=== PATIENT | male | born 1980 | race Two or more races ===

== ENCOUNTER 2025-02-26 02:15 | Inpatient (IN) | payer MEDICAID, OTHER ==
[~2025-02-26] VITALS: Ht 175.3 cm; Wt 79.0 kg
--- NOTE | 2025-02-26 03:01 | ED.PDOC ---
History of Present Illness HPI Comments 44-year-old male who came to ER via EMS for altered level of consciousness. Patient was seen by horacio MCWILLIAMS. Patient was being questioned and was acting and answering appropriately, When SO screened his name, nothing came out so they decided to do a fingerprint test on him. As they returned they saw the patient sitting upright against car bumper slumped over unresponsive and non verbal. Normal vital signs and blood sugar of 191. Unresponsive even with deep sternal rub, both pupils reactive to light. Patient brought in for evaluation and management REVIEW OF SYSTEMS: Altered mental status EXAM: General: Patient is sleeping, not arousing to pain. Skin: Skin in warm, dry and intact. Appropriate color for ethnicity. HEENT: The head is normocephalic and atraumatic. Conjunctivae are clear without exudates or hemorrhage. Sclera is non-icteric. No signs of nystagmus. Eyelids are normal in appearance without swelling or lesions. Oral mucosa is pink and moist. Some spontaneous eye movement noted. Neck: The neck is supple with normal range of motion. No JVD. Cardiac: Heart rate and rhythm are normal. No murmurs, gallops, or rubs are aus cultated. Respiratory: No signs of respiratory distress. Lung sounds are clear in all lobes bilaterally without rales, rhonchi, or wheezes. Abdominal: Abdomen is soft, non-tender without distention. Bowel sounds are present and normoactive in all four quadrants. Extremities: Upper and lower extremities are atraumatic in appearance without deformity or edema. Neurological: The patient is sleeping, minimal spontaneous movement. He does not respond to commands or pain. No vocalizations. 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 Was a procedure done?: No Differential Dx Considerations may include: Altered mental status, homeless, substance abuse, malingering X-Ray, Labs, Meds, VS Vital Signs Date Time Temp Pulse Resp B/P (MAP) Pulse Ox O2 Delivery O2 Flow Rate FiO2 02/26/25 02:18 98.5 92 18 149/87 97 98.5 Lab Test 02/26/25 03:02 Range/Units White Blood Count 5.8 4.4-10.8 10^3/uL Red Blood Count 4.50 4.5-5.90 10^6/uL Hemoglobin 12.1 L 13.5-17.5 g/dL Hematocrit 36.6 L 41.0-53.0 % Mean Corpuscular Volume 81.3 80.0-100.0 fL Mean Corpuscular Hemoglobin 27.0 L 28.0-32.0 pg Mean Corpuscular Hemoglobin Concent 33.2 32.0-36.0 g/dL Red Cell Distribution Width 14.3 11.8-14.3 % Platelet Count 209 140-450 10^3/uL Mean Platelet Volume 8.8 6.9-10.8 fL Neutrophils (%) (Auto) 50.5 37.0-80.0 % Lymphocytes (%) (Auto) 38.3 10.0-50.0 % Monocytes (%) (Auto) 8.2 0.0-12.0 % Eosinophils (%) (Auto) 2.2 0.0-7.0 % Basophils (%) (Auto) 0.8 0.0-2.0 % Neutrophils # (Auto) 2.9 1.6-8.6 10 ^3/uL Lymphocytes # (Auto) 2.2 0.4-5.4 10 ^3/uL Monocytes # (Auto) 0.5 0-1.3 10 ^3/uL Eosinophils # (Auto) 0.1 0-0.8 10 ^3/uL Basophils # (Auto) 0 0-0.2 10 ^3/uL Nucleated Red Blood Cells 0.0 % Sodium Level 142 136-145 mmol/L Potassium Level 3.8 3.5-5.1 mmol/L Chloride Level 104 98-107 mmol/L Carbon Dioxide Level 29 20-31 mmol/L Anion Gap 9 5-15 Blood Urea Nitrogen 10 9-23 mg/dL Creatinine 0.66 L 0.700-1.30 mg/dL Glomerular Filtration Rate Calc 120 >90 mL/min BUN/Creatinine Ratio 15.2 10.0-20.0 Serum Glucose 89 74-106 mg/dL Calcium Level 9.1 8.7-10.4 mg/dL Magnesium Level 1.9 1.6-2.6 mg/dL Total Bilirubin 0.2 0.2-1.0 mg/dL Aspartate Amino Transferase (AST) 20 13-40 U/L Alanine Aminotransferase (ALT) 22 7-40 U/L Alkaline Phosphatase 105 46-116 U/L Ammonia 44 H 11-32 umol/L Total Protein 6.7 5.7-8.2 g/dL Albumin 3.8 3.2-4.8 g/dL Lipase 24 12-53 U/L Plasma/Serum Blood Alcohol < 3.0 <10 mg/dL Time of 1ST Reevaluation: 02:55 Reevaluation 1ST: Unchanged Patient Education/Counseling: Need For Follow Up Family Education/Counseling: No Family Present SEPSIS Sepsis Screen Date sepsis recognized/suspect: Feb 26, 2025 Time Sepsis recognized/suspect: 217 Respiratory Rate >20: No Heart Rate >90: Yes Temp<36 C (96.8 F) or >38.3 C: No SBP <90 or MAP <65 mmHG: No New Acute Mental Status Change: Yes Is the patient on CPAP, BIPAP,: No Physician Orders Drug Screen (02/26/25 02:53) Urinalysis (02/26/25 02:53) Saline Lock (02/26/25 02:53) Straight Cath. (02/26/25 ) Head Without Contrast (02/26/25 02:55) Vital Signs Date Time Temp Pulse Resp B/P (MAP) Pulse Ox O2 Delivery O2 Flow Rate FiO2 02/26/25 02:18 98.5 92 18 149/87 97 98.5 Laboratory Tests Test 02/26/25 03:02 White Blood Count 5.8 10^3/uL (4.4-10.8) Departure 1 Departure Time of Disposition: 05:22 Impression: Primary Impression: Altered mental status Disposition: ADMITTED INPATIENT Condition: Guarded Comments 44-year-old male with altered mental status. No respiratory compromise. Patient admitted to hospitalist service for further treatment, evaluation and monitoring. Critical Care Note Critical Care Time?: No Stability Stability form required: No Heart Score Heart Score: Heart Score Response (Comments) Value History N/A 0 EKG N/A 0 Age N/A 0 Risk Factors N/A 0 Troponin N/A 0 Total 0 I personally scribed for NISHA RAMON MD ([email or web address]) on 02/26/25 at 03:01. Electronically submitted by Eliseo Guzman ([facility]). NISHA RAMON MD Feb 26, 2025 03:01
--- NOTE | 2025-02-26 03:35 | DVH ---
MEDICAL RECORDS NUMBER: [id number] PROCEDURE: CT HEAD WITHOUT CONTRAST Date: 02/26/2025 03:11 AM HISTORY: Altered mental status TECHNIQUE: Contiguous 5 mm axial images were acquired from the skull base through to the vertex. CONTRAST: None COMPARISON: None RADIATION DOSE INFORMATION: Automated exposure control dose reduction techniques were used. FINDINGS: Ventricles: Atrophy of the brain is seen to a mild degree.The ventricles appear grossly unremarkable. Masses: No mass effect is seen. Hemorrhage: No blood products are identified. Skull: The calvarium is intact. Sinuses: The paranasal sinuses are clear. Mastoids: No fluid is seen in the mastoid air cells. IMPRESSION: 1. No acute process is identified.
[2025-02-26 03:37] LABS: Hematocrit 36.6 % (41.0-53.0); Hemoglobin 12.1 g/dL (13.5-17.5); Mean Corpuscular Hemoglobin 27.0 pg (28.0-32.0); Mean Corpuscular Volume 81.3 fL (80.0-100.0); Nucleated Red Blood Cells % 0.0 %
[2025-02-26 03:43] LABS: Alanine Aminotransferase 22 U/L (7-40); Albumin 3.8 g/dL (3.2-4.8); Alkaline Phosphatase 105 U/L (46-116); Anion Gap 9 (5-15); BUN/Creatinine Ratio 15.2 (10.0-20.0); Blood Urea Nitrogen 10 mg/dL (9-23); Calcium 9.1 mg/dL (8.7-10.4); Carbon Dioxide 29 mmol/L (20-31); Chloride 104 mmol/L (98-107); Glucose 89 mg/dL (74-106); Lipase 24 U/L (12-53); Magnesium 1.9 mg/dL (1.6-2.6); Potassium 3.8 mmol/L (3.5-5.1); Sodium 142 mmol/L (136-145); Total Protein 6.7 g/dL (5.7-8.2)
[2025-02-26 03:52] LABS: Bilirubin, Total 0.2 mg/dL (0.2-1.0)
--- NOTE | 2025-02-26 07:01 | DVHHP2 ---
History of Present Illness Reason for Visit: ALOC History of Present Illness Dionisio Dumont is a 44-year-old male unknown past medical history who presents to the ED with altered level of consciousness. 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 Upon evaluation sternal rub and tactile stimuli initiated with no response. Shortly after when I mentioned that we would put a rectal tube and give the patient Narcan he started to come to with his eyes opening up but not reply to my questions. Officer at bedside Juan Vizcaino reports that he found him behind the [employer] on [place] [facility] in [place]. Patient appears in no distress at this time Review of Systems Neurological: Other (aloc) Allergies: Uncoded Allergies: UNKNOWN (Allergy, Unknown, 02/26/25) Exam Vital Signs Vital Signs Date Time Temp Pulse Resp B/P (MAP) Pulse Ox O2 Delivery O2 Flow Rate FiO2 02/26/25 02:18 98.5 92 18 149/87 97 98.5 Respiratory: Normal air movement Cardiovascular: Regular rate, Normal S1, Normal S2 Abdominal: Normal bowel sounds Labs/Xrays Labs Test 02/26/25 03:02 Range/Units White Blood Count 5.8 4.4-10.8 10^3/uL Red Blood Count 4.50 4.5-5.90 10^6/uL Hemoglobin 12.1 L 13.5-17.5 g/dL Hematocrit 36.6 L 41.0-53.0 % Mean Corpuscular Volume 81.3 80.0-100.0 fL Mean Corpuscular Hemoglobin 27.0 L 28.0-32.0 pg Mean Corpuscular Hemoglobin Concent 33.2 32.0-36.0 g/dL Red Cell Distribution Width 14.3 11.8-14.3 % Platelet Count 209 140-450 10^3/uL Mean Platelet Volume 8.8 6.9-10.8 fL Neutrophils (%) (Auto) 50.5 37.0-80.0 % Lymphocytes (%) (Auto) 38.3 10.0-50.0 % Monocytes (%) (Auto) 8.2 0.0-12.0 % Eosinophils (%) (Auto) 2.2 0.0-7.0 % Basophils (%) (Auto) 0.8 0.0-2.0 % Neutrophils # (Auto) 2.9 1.6-8.6 10 ^3/uL Lymphocytes # (Auto) 2.2 0.4-5.4 10 ^3/uL Monocytes # (Auto) 0.5 0-1.3 10 ^3/uL Eosinophils # (Auto) 0.1 0-0.8 10 ^3/uL Basophils # (Auto) 0 0-0.2 10 ^3/uL Nucleated Red Blood Cells 0.0 % Sodium Level 142 136-145 mmol/L Potassium Level 3.8 3.5-5.1 mmol/L Chloride Level 104 98-107 mmol/L Carbon Dioxide Level 29 20-31 mmol/L Anion Gap 9 5-15 Blood Urea Nitrogen 10 9-23 mg/dL Creatinine 0.66 L 0.700-1.30 mg/dL Glomerular Filtration Rate Calc 120 >90 mL/min BUN/Creatinine Ratio 15.2 10.0-20.0 Serum Glucose 89 74-106 mg/dL Calcium Level 9.1 8.7-10.4 mg/dL Magnesium Level 1.9 1.6-2.6 mg/dL Total Bilirubin 0.2 0.2-1.0 mg/dL Aspartate Amino Transferase (AST) 20 13-40 U/L Alanine Aminotransferase (ALT) 22 7-40 U/L Alkaline Phosphatase 105 46-116 U/L Ammonia 44 H 11-32 umol/L Total Protein 6.7 5.7-8.2 g/dL Albumin 3.8 3.2-4.8 g/dL Lipase 24 12-53 U/L Plasma/Serum Blood Alcohol < 3.0 <10 mg/dL CHEST RADIOGRAPH Indication: aloc Technique: Single frontal view of the chest was obtained Comparison: None FINDINGS: Lines and Tubes: None Lungs: No focal consolidation. Pleura: No effusion. No pneumothorax. Cardiomediastinal contours: Unremarkable Bones: No acute osseous abnormality. IMPRESSION: No acute cardiopulmonary disease. MEDICAL RECORDS NUMBER: [id number] PROCEDURE: CT HEAD WITHOUT CONTRAST Date: 02/26/2025 03:11 AM HISTORY: Altered mental status TECHNIQUE: Contiguous 5 mm axial images were acquired from the skull base through to the vertex. CONTRAST: None COMPARISON: None RADIATION DOSE INFORMATION: Automated exposure control dose reduction techniques were used. FINDINGS: Ventricles: Atrophy of the brain is seen to a mild degree.The ventricles appear grossly unremarkable. Masses: No mass effect is seen. Hemorrhage: No blood products are identified. Skull: The calvarium is intact. Sinuses: The paranasal sinuses are clear. Mastoids: No fluid is seen in the mastoid air cells. IMPRESSION: 1. No acute process is identified. SEPSIS Sepsis Screen Date sepsis recognized/suspect: Feb 26, 2025 Time Sepsis recognized/suspect: 0218 Respiratory Rate >20: No Heart Rate >90: Yes Temp<36 C (96.8 F) or >38.3 C: No SBP <90 or MAP <65 mmHG: No New Acute Mental Status Change: Yes Is the patient on CPAP, BIPAP,: No Physician Orders Drug Screen (02/26/25 02:53) Urinalysis (02/26/25 02:53) Saline Lock (02/26/25 02:53) Straight Cath. (02/26/25 ) Head Without Contrast (02/26/25 02:55) Vital Signs Date Time Temp Pulse Resp B/P (MAP) Pulse Ox O2 Delivery O2 Flow Rate FiO2 02/26/25 02:18 98.5 92 18 149/87 97 98.5 Laboratory Tests Test 02/26/25 03:02 White Blood Count 5.8 10^3/uL (4.4-10.8) Assessment/Plan Assessment/Plan Assessment Acute encephalopathy Positive amphetamines and fentanyl Hyperammonemia Plan Admit to med surge Antiemetics Ammonia levels Straight cath UA Mag level Lipase UDS Blood alcohol level Lactulose Chest x-ray Narcan ABG Diet Will need list of home medications DVT prophylaxis-SCDs PUD prophylaxis-not indicated no history of GERD or GI bleed Discussed plan of care with nurse Patient is in police custody Counseled patient on cessation of polysubstance use [id number] Behavior change smoking greater than 10 minutes about use of other options also gave option of nicotine patch 19226 Preventive counseling healthy eating habits, physical activity, and regular checkups Plan discussed with: Patient Date of Service: Feb 26, 2025 Billing Provider: TOMMY RANDOLPH Common Visit Codes: 10022-[id number] INP/OBS CARE (HIGH) Secondary Visit Codes: 80183-[id number] COUNSELING IND, 19869-UEVRA CHNG SMOKING >10MIN TOMMY RANDOLPH Feb 26, 2025 07:01
[2025-02-26] MEDS ORDERED: LACTULOSE 10g/15ml SOLN 473ML PR ONE (07:15)
[2025-02-26] MEDS ORDERED: ACETAMINOPHEN 325 MG TAB PO PRN (07:15)
[2025-02-26 07:45] VITALS: PULSE 80; RESP 12; O2SAT 97
--- NOTE | 2025-02-26 08:53 | DVH ---
CHEST RADIOGRAPH Indication: aloc Technique: Single frontal view of the chest was obtained Comparison: None FINDINGS: Lines and Tubes: None Lungs: No focal consolidation. Pleura: No effusion. No pneumothorax. Cardiomediastinal contours: Unremarkable Bones: No acute osseous abnormality. IMPRESSION: No acute cardiopulmonary disease.
[2025-02-26] MEDS: NALOXONE HCL 1MG/ML 2ML SYRINGE IV ONE (09:00)
[2025-02-26 09:28] LABS: Base Excess -0.8 mmol/L (-2.0-3.0)
[2025-02-26 10:20] LABS: Urine Amorphous Crystal FEW /hpf (None Seen); Urine Protein, UAD 1+ (Negative); Urine WBC Clumps PRESENT /hpf (None Seen)
[2025-02-26 10:22] LABS: Amphetamine Screen, Urine Pos (NEGATIVE); Barbiturate Scree,Urine Neg (NEGATIVE); Benzodiazephine Screen, Urine Neg (NEGATIVE); Cannabinoid Screen, Urine Neg (NEGATIVE); Cocaine Screen, Urine Neg (NEGATIVE); Opiate Scree,Urine Neg (NEGATIVE); Phencyclidine Screen, Urine Neg (NEGATIVE)
[2025-02-26] MEDS: LACTULOSE 20Gm/30ML SOLN PO ONE (10:33)
[2025-02-26 18:25] VITALS: BP 147/93; PULSE 77; RESP 17; O2SAT 98
[2025-02-26 18:27] VITALS: PULSE 77; RESP 17; O2SAT 99
[2025-02-26 18:30] VITALS: BP 134/89; PULSE 67; RESP 16; TEMP 97.8; O2SAT 97
[2025-02-26 20:00] VITALS: RESP 16
[2025-02-26 21:00] VITALS: BP 139/90; PULSE 69; RESP 17; TEMP 97.9; O2SAT 98
[2025-02-27 01:00] VITALS: BP 141/95; PULSE 73; RESP 16; TEMP 97.8; O2SAT 99
[2025-02-27] MEDS: ONDANSETRON HCL 4 MG/2 ML VIAL IV PRN (03:38)
[2025-02-27 05:00] VITALS: BP 135/90; PULSE 75; RESP 16; TEMP 98.5; O2SAT 100
== END 2025-02-27 07:40 | disposition left against medical advice (07) | DRG 52 ==
LOC: EDBD 02:15 → ER 02:15 → OVERFLOW 07:08 → WEST WING 18:05
DX: G92.8 Other toxic encephalopathy (principal); E72.20 Disorder of urea cycle metabolism, unspecified; Z59.00 Homelessness unspecified; F17.200 Nicotine dependence, unspecified, uncomplicated; Z53.29 Procedure and treatment not carried out because of patient's decision for other reasons; Z76.5 Malingerer [conscious simulation]
CPT/HCPCS: 36415; 36600; 70450; 71045; 80053; 80307; 80320; 81001; 82140; 82805; 83690; 83735; 85025; G0378; J2405